=== PATIENT | female | born 1965 | race African-American/Black ===

== ENCOUNTER 2019-06-09 17:45 | Emergency (ER) | payer MEDICAID ==
[~2019-06-09] VITALS: Ht 165.1 cm; Wt 65.0 kg
[2019-06-09 18:38] LABS: EOSINOPHILS % 1.3 % (0.0-5.0); HEMATOCRIT. 27.3 % (36.0-48.0); LYMPHOCYTES % 35.5 % (20.0-50.0); MEAN CORPUSCULAR HEMOGLOBIN 17.1 pg (28.0-32.0); MEAN CORPUSCULAR VOLUME 58.2 fL (81.0-99.0); MEAN PLATELET VOLUME 8.9 fl (7.4-10.4); NEUTROPHILS % 53.2 % (40.0-76.0); PLATELET 299 x1000/uL (130-400); RED BLOOD CELL COUNT 4.69 mill/uL (4.2-5.4); RED CELL DISTRIBUTION WIDTH 21.8 % (11.6-14.6)
[2019-06-09 18:39] LABS: CHLORIDE 107 mEq/L (98-107)
[2019-06-09 18:40] LABS: PROTHROMBIN TIME 9.9 sec (9.6-11.0)
[2019-06-09 18:43] LABS: ETHANOL BLOOD < 10 mg/dL
[2019-06-09 18:46] LABS: LDL CHOLESTEROL 80 mg/dL (5-100)
[2019-06-09 18:50] LABS: PLATELET ESTIMATE NORMAL
[2019-06-09 19:11] LABS: CLARITY URINE CLEAR (CLEAR); COLOR URINE YELLOW (YELLOW); KETONES URINE NEGATIVE (NEGATIVE); LEUKOCYTE ESTERASE URINE 1+ (NEGATIVE); NITRITE URINE NEGATIVE (NEGATIVE); OCCULT BLOOD URINE NEGATIVE (NEGATIVE); PH URINE 7.5 (4.5-8.0); PROTEIN URINE NEGATIVE (NEGATIVE); SPECIFIC GRAVITY URINE 1.015 (1.005-1.030)
[2019-06-09 19:20] LABS: *AMPHETAMINES SCREEN URINE NEGATIVE (NEGATIVE); *BARBITURATES SCREEN URINE NEGATIVE (NEGATIVE); *BENZODIAZEPINES SCREEN URINE NEGATIVE (NEGATIVE); *COCAINE SCREEN URINE NEGATIVE (NEGATIVE); METHADONE URINE SCREEN NEGATIVE (NEGATIVE)
[2019-06-09 19:21] LABS: CANNABINOID URINE SCREEN PRESUMTIVE POSITIVE (NEGATIVE); OPIATES URINE SCREEN NEGATIVE (NEGATIVE); PHENCYCLIDINE URINE SCREEN NEGATIVE (NEGATIVE)
[2019-06-09] MEDS ORDERED: IOHEXOL-350 100 ML BOTTLE ONE (19:25)
[2019-06-09] MEDS ORDERED: ASPIRIN 81MG TABLET PO NR (21:00)
[2019-06-09 21:51] VITALS: BP 157/103
== END 2019-06-09 21:30 | disposition short-term general hospital (02) ==
LOC: ER 17:45 → CANBEDREQ 06-10 00:29
DX: I63.9 Cerebral infarction, unspecified (principal); D50.9 Iron deficiency anemia, unspecified; E11.9 Type 2 diabetes mellitus without complications; I10 Essential (primary) hypertension; Z86.73 Personal history of transient ischemic attack (TIA), and cerebral infarction without residual deficits
CPT/HCPCS: 36415; 70496; 70498; 71045; 80053; 80305; 80320; 81003; 82962; 83721; 84484; 85025; 85610; 93005; 99285; Q9967; Z7610; G0480